=== PATIENT | male | born 1965 | race African-American/Black ===

== ENCOUNTER 2020-11-13 06:58 | Inpatient (IN) | payer MEDICARE ==
[2020-11-13 07:41] LABS: #Eosinphils 0.1 10x3/uL (0.0-0.5); #Monocytes 0.8 10x3/uL (0.0-1.1); #Neutrophils 7.2 10x3/uL (1.5-8.4); %Basophils 0.3 % (0.0-2.0); %Eosinophils 0.8 % (0.0-6.0); %Lymphocytes 19.8 % (18.0-47.0); %Monocytes 8.2 % (0.0-10.0); %Neutrophils 70.6 % (40.0-75.0); Hemoglobin 11.8 g/dL (13.5-17.5); Mean Corpuscular Hemoglobin 23.7 pg (27.0-33.0); Mean Corpuscular Volume 78.9 fl (81.2-95.1); Mean Platelet Volume 11.9 fl (7.4-10.4); Platelet Count 309 10x3/uL (150-450); RBC Distribution Width 17.2 % (11.5-14.5); Red Blood Cell (RBC) Count 4.98 10x6/uL (4.32-5.72); White Blood Cell (WBC) Count 10.2 10x3/uL (3.5-10.5)
[2020-11-13 07:54] LABS: INR-International Normal Ratio 1.1; PTT 27.7 sec (22.0-33.0); Prothrombin Time 11.7 sec (9.5-12.1)
[2020-11-13 07:59] LABS: ALT (SGPT) 35 U/L (8-55); AST (SGOT) 30 U/L (5-34); Albumin 3.6 g/dL (3.5-5.0); Alkaline Phosphatase 89 U/L (40-110); Anion Gap 15 mmol/L (10-20); BUN (Urea Nitrogen) 15 mg/dL (8.4-25.7); Bilirubin, Total 0.6 mg/dL (0.2-1.2); Calc. Creatinine Clearance 0 mL/min (70-130); Calcium 9.4 mg/dL (7.8-10.44); Carbon Dioxide 23 mmol/L (22-29); Chloride 108 mmol/L (98-107); Globulin 3.4 g/dL (2.4-3.5); Glucose 123 mg/dL (70-105); Magnesium 2.1 mg/dL (1.6-2.6); Potassium 3.4 mmol/L (3.5-5.1); Sodium 143 mmol/L (136-145)
[2020-11-13 08:22] LABS: CKMB 2.5 ng/mL (0-6.6)
[2020-11-13 08:35] LABS: Digoxin Less than 0.15 ng/mL (0.8-2.0)
[2020-11-13] MEDS ORDERED: Furosemide 40 MG/4 ML VIAL ONE (09:11)
[2020-11-13] MEDS ORDERED: Digoxin 0.25 MG TAB ONE (09:50)
[2020-11-13] MEDS ORDERED: Aspirin 325 MG TAB ONE (09:50)
[2020-11-13] MEDS ORDERED: Diltiazem 125 MG/25 ML ONE (09:53)
[2020-11-13 12:08] LABS: SARS-CoV-2 NAA Rapid Test Not Detected (NotDetected)
[2020-11-13] MEDS ORDERED: Ondansetron PF 4 MG/2 ML Vial IVP PRN (12:16)
[2020-11-13] MEDS ORDERED: Acetaminophen 325 MG TAB PO PRN (12:16)
[2020-11-13] MEDS ORDERED: Ondansetron ODT 4 MG TAB PO PRN (12:16)
[2020-11-13] MEDS ORDERED: Acetaminophen 650 MG Suppository PR PRN (12:16)
[2020-11-13] MEDS ORDERED: hydrALAZINE 20 MG/ML VIAL SLOW IVP PRN (12:45)
[2020-11-13] MEDS ORDERED: Apixaban 5 MG TAB PO SCH (12:45)
[2020-11-13 15:47] LABS: CKMB 3.8 ng/mL (0-6.6)
[2020-11-13 19:51] VITALS: BMI 35.4
[2020-11-13] MEDS ORDERED: Apixaban 5 MG TAB ONE (21:43)
[2020-11-13] MEDS: Apixaban 5 MG TAB PO SCH (21:53)
[2020-11-13 22:41] LABS: CKMB 3.9 ng/mL (0-6.6)
[2020-11-14 04:12] LABS: #Basophils 0.1 10x3/uL (0.0-0.2); #Eosinphils 0.1 10x3/uL (0.0-0.5); #Monocytes 1.2 10x3/uL (0.0-1.1); #Neutrophils 6.5 10x3/uL (1.5-8.4); %Basophils 0.5 % (0.0-2.0); %Eosinophils 1.3 % (0.0-6.0); %Lymphocytes 21.7 % (18.0-47.0); %Monocytes 11.6 % (0.0-10.0); %Neutrophils 64.6 % (40.0-75.0); Hemoglobin 12.1 g/dL (13.5-17.5); Mean Corpuscular HGB CONC 30.6 g/dL (32.0-36.0); Mean Corpuscular Hemoglobin 23.7 pg (27.0-33.0); Mean Corpuscular Volume 77.6 fl (81.2-95.1); Mean Platelet Volume 11.6 fl (7.4-10.4); Platelet Count 293 10x3/uL (150-450); RBC Distribution Width 17.8 % (11.5-14.5)
[2020-11-14 04:24] LABS: Anion Gap 16 mmol/L (10-20); BUN (Urea Nitrogen) 16 mg/dL (8.4-25.7); Calc. Creatinine Clearance 122 mL/min (70-130); Calcium 9.6 mg/dL (7.8-10.44); Carbon Dioxide 25 mmol/L (22-29); Chloride 105 mmol/L (98-107); Glucose 94 mg/dL (70-105); Potassium 3.6 mmol/L (3.5-5.1); Sodium 142 mmol/L (136-145)
[2020-11-14] MEDS: Carvedilol 25 MG TAB PO SCH ×2 (04:50→12:34)
[2020-11-14] MEDS ORDERED: Furosemide 40 MG TAB PO SCH (07:30)
[2020-11-14] MEDS ORDERED: Atorvastatin Calcium 40 MG TAB PO SCH (09:00)
[2020-11-14] MEDS ORDERED: Digoxin 0.25 MG TAB ONE (09:30)
[2020-11-14] MEDS ORDERED: Apixaban 5 MG TAB ONE (09:30)
[2020-11-14] MEDS ORDERED: Furosemide 40 MG TAB ONE (09:30)
[2020-11-14] MEDS ORDERED: Potassium Chloride 20 MEQ TAB ONE (09:31)
[2020-11-14] MEDS: Apixaban 5 MG TAB PO SCH ×2 (10:03→21:49)
[2020-11-14] MEDS: Potassium Chloride 20 MEQ TAB PO SCH (10:03)
[2020-11-14] MEDS: Digoxin 0.25 MG TAB PO SCH (10:06)
[2020-11-14] MEDS ORDERED: Furosemide 40 MG/4 ML VIAL SLOW IVP SCH (18:30)
[2020-11-14] MEDS ORDERED: Furosemide 40 MG/4 ML VIAL ONE (18:43)
[2020-11-14] MEDS: Atorvastatin Calcium 40 MG TAB PO SCH (21:50)
[2020-11-15] MEDS: Carvedilol 25 MG TAB PO SCH ×3 (02:52→16:54)
[2020-11-15] MEDS: Furosemide 40 MG/4 ML VIAL SLOW IVP SCH ×2 (05:15→13:37)
[2020-11-15 05:30] LABS: #Eosinphils 0.1 10x3/uL (0.0-0.5); #Monocytes 0.9 10x3/uL (0.0-1.1); #Neutrophils 6.2 10x3/uL (1.5-8.4); %Basophils 0.3 % (0.0-2.0); %Eosinophils 1.2 % (0.0-6.0); %Monocytes 9.3 % (0.0-10.0); %Neutrophils 64.8 % (40.0-75.0); Hemoglobin 10.6 g/dL (13.5-17.5); Mean Corpuscular HGB CONC 30.5 g/dL (32.0-36.0); Mean Corpuscular Hemoglobin 23.8 pg (27.0-33.0); Mean Platelet Volume 11.6 fl (7.4-10.4); Platelet Count 284 10x3/uL (150-450); RBC Distribution Width 17.4 % (11.5-14.5); Red Blood Cell (RBC) Count 4.46 10x6/uL (4.32-5.72); White Blood Cell (WBC) Count 9.7 10x3/uL (3.5-10.5)
[2020-11-15 05:42] LABS: Anion Gap 12 mmol/L (10-20); BUN (Urea Nitrogen) 15 mg/dL (8.4-25.7); Calc. Creatinine Clearance 123 mL/min (70-130); Calcium 8.8 mg/dL (7.8-10.44); Carbon Dioxide 26 mmol/L (22-29); Chloride 106 mmol/L (98-107); Glucose 93 mg/dL (70-105); Potassium 3.4 mmol/L (3.5-5.1); Sodium 141 mmol/L (136-145)
[2020-11-15] MEDS: Digoxin 0.25 MG TAB PO SCH (10:19)
[2020-11-15] MEDS: Potassium Chloride 20 MEQ TAB PO SCH (10:20)
[2020-11-15] MEDS: Apixaban 5 MG TAB PO SCH ×2 (10:20→22:03)
[2020-11-15] MEDS: Atorvastatin Calcium 40 MG TAB PO SCH (22:02)
[2020-11-16 05:12] LABS: Anion Gap 11 mmol/L (10-20); BUN (Urea Nitrogen) 14 mg/dL (8.4-25.7); Calc. Creatinine Clearance 126 mL/min (70-130); Calcium 9.1 mg/dL (7.8-10.44); Carbon Dioxide 29 mmol/L (22-29); Chloride 104 mmol/L (98-107); Glucose 103 mg/dL (70-105); Potassium 3.7 mmol/L (3.5-5.1); Sodium 140 mmol/L (136-145)
[2020-11-16 05:13] LABS: #Eosinphils 0.1 10x3/uL (0.0-0.5); #Neutrophils 5.1 10x3/uL (1.5-8.4); %Basophils 0.4 % (0.0-2.0); %Eosinophils 1.1 % (0.0-6.0); %Lymphocytes 23.1 % (18.0-47.0); %Monocytes 12.7 % (0.0-10.0); %Neutrophils 62.3 % (40.0-75.0); Hemoglobin 10.7 g/dL (13.5-17.5); Mean Corpuscular HGB CONC 30.9 g/dL (32.0-36.0); Mean Corpuscular Hemoglobin 24.2 pg (27.0-33.0); Mean Corpuscular Volume 78.1 fl (81.2-95.1); Platelet Count 297 10x3/uL (150-450); RBC Distribution Width 17.2 % (11.5-14.5); Red Blood Cell (RBC) Count 4.43 10x6/uL (4.32-5.72); White Blood Cell (WBC) Count 8.1 10x3/uL (3.5-10.5)
[2020-11-16] MEDS: Furosemide 40 MG/4 ML VIAL SLOW IVP SCH (06:05)
[2020-11-16] MEDS: Carvedilol 25 MG TAB PO SCH (09:29)
[2020-11-16] MEDS: Digoxin 0.25 MG TAB PO SCH (09:29)
[2020-11-16] MEDS: Apixaban 5 MG TAB PO SCH (09:29)
[2020-11-16] MEDS: Potassium Chloride 20 MEQ TAB PO SCH (09:29)
[2020-11-16 11:47] VITALS: BP 151/103; TEMP 97.4
== END 2020-11-16 13:52 | disposition home health service (06) | DRG 281 ==
LOC: CSHERS 06:58 → CSHERHOLD 19:13 → INTOOBSV 19:13 → CSHTELE 11-14 20:11 → OBSVTOIN 11-15 12:52
PROVIDERS: ADMIT Student in an Organized Health Care Education/Training Program; ATTEND Hospitalist
DX: I11.0 Hypertensive heart disease with heart failure (principal); I21.A1 Myocardial infarction type 2; I48.19 Other persistent atrial fibrillation; I50.23 Acute on chronic systolic (congestive) heart failure; I25.10 Atherosclerotic heart disease of native coronary artery without angina pectoris; E78.5 Hyperlipidemia, unspecified; E66.9 Obesity, unspecified; Z68.35 Body mass index [BMI] 35.0-35.9, adult; J44.9 Chronic obstructive pulmonary disease, unspecified; Z86.73 Personal history of transient ischemic attack (TIA), and cerebral infarction without residual deficits; Z87.891 Personal history of nicotine dependence; Z91.14 Patient's other noncompliance with medication regimen; Z20.822 Contact with and (suspected) exposure to COVID-19
CPT/HCPCS: 0240U; 36415; 71045; 80048; 80053; 80162; 82553; 83735; 83880; 84443; 84484; 85025; 85610; 85730; 93005; 94760; 96374; 96375; 96376; G0378; J1940

== ENCOUNTER 2021-10-30 10:28 | Inpatient (IN) | payer MEDICARE ==
[2021-10-30 10:46] VITALS: BMI 32.6
[2021-10-30] MEDS ORDERED: Furosemide 20 MG TAB PO PRN (11:00)
[2021-10-30] MEDS ORDERED: Albuterol Sulfate 2.5 mg/3 ml Neb NEB PRN (11:02)
[2021-10-30] MEDS ORDERED: Acetaminophen 325 MG TAB PO PRN (11:09)
[2021-10-30] MEDS ORDERED: Senokot S 8.6-50 MG TAB PO PRN (11:09)
[2021-10-30] MEDS ORDERED: Ondansetron ODT 4 MG TAB PO PRN (11:09)
[2021-10-30] MEDS: Diltiazem 125 MG in Sodium Chloride 0.9% 100 ML IVPB SCH ×2 (11:49→22:04)
[2021-10-30 13:44] LABS: Troponin I 0.026 ng/mL (< 0.028)
[2021-10-30] MEDS: Furosemide 40 MG/4 ML VIAL SLOW IVP SCH (13:58)
[2021-10-30] MEDS ORDERED: Lisinopril 20 MG TAB PO SCH (14:00)
[2021-10-30 15:06] LABS: Magnesium 2.1 mg/dL (1.6-2.6)
[2021-10-30 16:31] LABS: Troponin I 0.022 ng/mL (< 0.028)
[2021-10-30] MEDS: Mometasone/Formoterol 60 PUFF AER INH SCH (18:45)
[2021-10-30] MEDS: Famotidine 20 MG TAB PO SCH (20:36)
[2021-10-30] MEDS ORDERED: Atorvastatin Calcium 40 MG TAB PO SCH (21:00)
[2021-10-30] MEDS: levETIRAcetam 500 MG TAB PO SCH (21:30)
[2021-10-30] MEDS: Apixaban 5 MG TAB PO SCH (21:30)
[2021-10-31 05:23] LABS: #Monocytes 1.4 10x3/uL (0.0-1.1); #Neutrophils 16.9 10x3/uL (1.5-8.4); %Basophils 0.2 % (0.0-2.0); %Lymphocytes 5.6 % (18.0-47.0); %Monocytes 7.1 % (0.0-10.0); %Neutrophils 86.6 % (40.0-75.0); Hemoglobin 12.9 g/dL (13.5-17.5); Mean Corpuscular HGB CONC 32.3 g/dL (32.0-36.0); Mean Corpuscular Hemoglobin 26.2 pg (27.0-33.0); Mean Corpuscular Volume 81.1 fl (81.2-95.1); Mean Platelet Volume 11.6 fl (7.4-10.4); Platelet Count 276 10x3/uL (150-450); RBC Distribution Width 15.8 % (11.5-14.5); Red Blood Cell (RBC) Count 4.92 10x6/uL (4.32-5.72); White Blood Cell (WBC) Count 19.5 10x3/uL (3.5-10.5)
[2021-10-31 05:28] LABS: Anion Gap 15 mmol/L (10-20); BUN (Urea Nitrogen) 23 mg/dL (8.4-25.7); Calc. Creatinine Clearance 87 mL/min (70-130); Carbon Dioxide 26 mmol/L (22-29); Chloride 100 mmol/L (98-107); Estimated GFR 74; Glucose 154 mg/dL (70-105); Potassium 3.6 mmol/L (3.5-5.1); Sodium 137 mmol/L (136-145)
[2021-10-31] MEDS: Furosemide 40 MG/4 ML VIAL SLOW IVP SCH ×2 (06:09→14:12)
[2021-10-31] MEDS: Mometasone/Formoterol 60 PUFF AER INH SCH ×2 (07:57→20:05)
[2021-10-31] MEDS ORDERED: Digoxin 0.25 MG TAB PO SCH (08:00)
[2021-10-31] MEDS: Famotidine 20 MG TAB PO SCH (08:22)
[2021-10-31] MEDS: Apixaban 5 MG TAB PO SCH (08:23)
[2021-10-31] MEDS: levETIRAcetam 500 MG TAB PO SCH (08:23)
[2021-10-31] MEDS ORDERED: Lisinopril 20 MG TAB PO SCH (09:00)
[2021-10-31] MEDS ORDERED: Aspirin 81 mg Enteric Coated Tablet PO SCH (09:00)
[2021-10-31] MEDS ORDERED: Potassium Chloride 10 MEQ TAB PO SCH (09:00)
[2021-10-31] MEDS: Diltiazem 125 MG in Sodium Chloride 0.9% 100 ML IVPB SCH (12:00)
[2021-10-31 16:11] VITALS: BP 138/67; TEMP 97.2
== END 2021-10-31 18:51 | disposition home or self-care (01) | DRG 308 ==
LOC: CSHTELE 10:28
PROVIDERS: ADMIT Internal Medicine; ATTEND Family Medicine
DX: I48.91 Unspecified atrial fibrillation (principal); I50.33 Acute on chronic diastolic (congestive) heart failure; I69.354 Hemiplegia and hemiparesis following cerebral infarction affecting left non-dominant side; J45.901 Unspecified asthma with (acute) exacerbation; I24.8 Other forms of acute ischemic heart disease; I42.9 Cardiomyopathy, unspecified; E78.5 Hyperlipidemia, unspecified; E87.6 Hypokalemia; I73.9 Peripheral vascular disease, unspecified; I11.0 Hypertensive heart disease with heart failure; Z79.899 Other long term (current) drug therapy; I25.2 Old myocardial infarction; Z95.2 Presence of prosthetic heart valve; Z79.01 Long term (current) use of anticoagulants; Z91.19 Patient's noncompliance with other medical treatment and regimen
CPT/HCPCS: 36415; 80048; 83735; 85025; 94640; 94664; 94760; J1940; J3490; J7611; J7620

== ENCOUNTER 2021-12-26 12:59 | Observation (INO) | payer MEDICARE ==
[2021-12-26 13:53] VITALS: BMI 37.8
[2021-12-26] MEDS ORDERED: Ondansetron ODT 4 MG TAB PO PRN (14:11)
[2021-12-26] MEDS ORDERED: Acetaminophen 325 MG TAB PO PRN (14:11)
[2021-12-26] MEDS ORDERED: Diltiazem 125 MG in Sodium Chloride 0.9% 100 ML IVPB SCH (14:15)
[2021-12-26] MEDS ORDERED: Benzonatate 100 MG CAP PO PRN (14:18)
[2021-12-26] MEDS ORDERED: Ventolin HFA Inhaler 60 PUFF INHALER INH PRN (14:24)
[2021-12-26] MEDS ORDERED: Furosemide 40 MG/4 ML VIAL SLOW IVP SCH (14:30)
[2021-12-26 15:26] LABS: CKMB 3.9 ng/mL (0-6.6)
[2021-12-26] MEDS: Mometasone/Formoterol 60 PUFF AER INH SCH (19:30)
[2021-12-26] MEDS ORDERED: NIRMATRELVIR 150 MG/RITONAVIR 100 MG PO SCH (21:00)
[2021-12-26] MEDS ORDERED: Atorvastatin Calcium 40 MG TAB PO SCH (21:00)
[2021-12-26] MEDS: levETIRAcetam 500 MG TAB PO SCH (23:29)
[2021-12-26] MEDS: Metoprolol Tartrate 50 MG TAB PO SCH (23:30)
[2021-12-26] MEDS: Famotidine 20 MG TAB PO SCH (23:30)
[2021-12-26] MEDS: Apixaban 5 MG TAB PO SCH (23:30)
[2021-12-26] MEDS: NIRMATRELVIR 150 MG/RITONAVIR 100 MG PO SCH (23:31)
[2021-12-27 05:10] LABS: #Eosinphils 0.1 10x3/uL (0.0-0.5); #Monocytes 0.9 10x3/uL (0.0-1.1); #Neutrophils 6.4 10x3/uL (1.5-8.4); %Basophils 0.5 % (0.0-2.0); %Eosinophils 1.4 % (0.0-6.0); %Lymphocytes 14.9 % (18.0-47.0); %Monocytes 9.9 % (0.0-10.0); %Neutrophils 73.1 % (40.0-75.0); Hemoglobin 11.8 g/dL (13.5-17.5); Mean Corpuscular HGB CONC 32.2 g/dL (32.0-36.0); Mean Corpuscular Hemoglobin 26.5 pg (27.0-33.0); Mean Corpuscular Volume 82.5 fl (81.2-95.1); Mean Platelet Volume 11.8 fl (7.4-10.4); Platelet Count 244 10x3/uL (150-450); Red Blood Cell (RBC) Count 4.45 10x6/uL (4.32-5.72); White Blood Cell (WBC) Count 8.7 10x3/uL (3.5-10.5)
[2021-12-27 05:16] LABS: Magnesium 1.9 mg/dL (1.6-2.6)
[2021-12-27] MEDS: Apixaban 5 MG TAB PO SCH (08:27)
[2021-12-27] MEDS: Metoprolol Tartrate 50 MG TAB PO SCH (08:27)
[2021-12-27] MEDS: Famotidine 20 MG TAB PO SCH (08:28)
[2021-12-27] MEDS: levETIRAcetam 500 MG TAB PO SCH (08:28)
[2021-12-27] MEDS: NIRMATRELVIR 150 MG/RITONAVIR 100 MG PO SCH (08:29)
[2021-12-27] MEDS ORDERED: Cholecalciferol (Vitamin D3) 400 UNITS TAB PO SCH (09:00)
[2021-12-27] MEDS ORDERED: Zinc Sulfate 220 MG CAP PO SCH (09:00)
[2021-12-27] MEDS ORDERED: Ascorbic Acid 500 mg Chewable Tablet PO SCH (09:00)
[2021-12-27] MEDS ORDERED: Potassium Chloride 20 MEQ TAB PO SCH (09:00)
[2021-12-27] MEDS ORDERED: Dexamethasone 4 mg/ml Vial SLOW IVP SCH (09:00)
[2021-12-27] MEDS: Mometasone/Formoterol 60 PUFF AER INH SCH (09:00)
[2021-12-27] MEDS ORDERED: Furosemide 40 MG/4 ML VIAL SLOW IVP SCH (09:00)
[2021-12-27] MEDS ORDERED: Aspirin 81 mg Enteric Coated Tablet PO SCH (09:00)
[2021-12-27 19:50] VITALS: BP 159/74; TEMP 98.1
[2021-12-31] MEDS ORDERED: Atorvastatin Calcium 40 MG TAB PO SCH (21:00)
== END 2021-12-27 14:40 | disposition home or self-care (01) ==
LOC: CSHTELE 12:59 → INTOOBSV 12:59
PROVIDERS: ADMIT Internal Medicine; ATTEND Internal Medicine
DX: I48.19 Other persistent atrial fibrillation (principal); E78.5 Hyperlipidemia, unspecified; G40.909 Epilepsy, unspecified, not intractable, without status epilepticus; I11.0 Hypertensive heart disease with heart failure; I50.32 Chronic diastolic (congestive) heart failure; I25.10 Atherosclerotic heart disease of native coronary artery without angina pectoris; J45.909 Unspecified asthma, uncomplicated; F32.A Depression, unspecified; J96.01 Acute respiratory failure with hypoxia; R74.01 Elevation of levels of liver transaminase levels; I21.4 Non-ST elevation (NSTEMI) myocardial infarction; Z86.73 Personal history of transient ischemic attack (TIA), and cerebral infarction without residual deficits; Z91.14 Patient's other noncompliance with medication regimen; Z79.01 Long term (current) use of anticoagulants; Z79.899 Other long term (current) drug therapy; Z86.16 Personal history of COVID-19
CPT/HCPCS: 82553; 83735; 84484; 85025; 86140; 94640 ×2; 94760; 96374; 96376; G0378 ×2; 36415; J1940